=== PATIENT | male | born 1970 | race Caucasian/White ===

== ENCOUNTER 2017-07-16 16:50 | Emergency (ER) | payer OTHER ==
[2017-07-16 16:57] VITALS: BP 107/87; PULSE 92; RESP 20; TEMP 97.9; O2SAT 94
--- NOTE | 2017-07-16 17:09 | EDPHY ---
H & P Stated Complaint: st Time Seen by Provider: 07/16/17 17:08 HPI/ROS: HPI: This is a 47-year-old male who presents with Chief Complaint:throat pain Location: Throat Quality: Discomfort Duration: 2 days Signs and Symptoms: No fever, no chills, no neck stiffness, no headache, no difficulty swallowing, no swollen glands, no exudate Timing: Sudden Severity: Mild Context: Patient reports that he has had some throat discomfort for the last 2 days but denies fever, chills, neck stiffness, cough. Patient reports that he is eating and drinking well and without difficulty. Patient reports that the discomfort is negligible. He is to skin turned that he may have strep throat. Modifying Factors: He has taken no [id number] medication Comment: ROS: see HPI Constitutional: No fever, no chills, no weight loss Eyes: No blurred vision Respiratory: No shortness of breath, no cough Cardiovascular: No chest pain Gastrointestinal: No nausea, no vomiting, no diarrhea Genitourinary: No dysuria Extremities: No myalgias Neurologic: No weakness, no numbness Skin: No rashes Hematologic: No bruising, no bleeding MEDICAL/SURGICAL/SOCIAL HISTORY: Medical history: Generally healthy. Does not take any regular medications. Surgical history: Tonsillectomy Social history: Employed CONSTITUTIONAL: awake and alert, no obvious distress HEENT: Atraumatic and normocephalic, PERRL, EOMI. Tympanic membranes clear. Oropharynx clear, tonsils very small; uvula midline; minimal erythema in posterior pharynx; no exudate and moist pink mucosa. Airway patent. No lymphadenopathy. No meningismus. Cardiovascular: Normal S1/S2, regular rate, regular rhythm, without murmur rub or gallop. PULMONARY/CHEST: Symmetrical and nontender. Clear to auscultation bilaterally. Good air movement. No accessory muscle usage. ABDOMEN: Soft, nondistended, nontender, no rebound, no guarding, no peritoneal signs, no masses or organomegaly. No CVAT. EXTREMITIES: 2/2 pulses, strength 5/5, no deformities, no clubbing, no cyanosis or edema. NEUROLOGICAL: no focal neuro deficits. GCS 15. SKIN: Warm and dry, no erythema. no rash. Good capillary refill. Source: Patient Exam Limitations: No limitations - Personal History Current Tetanus/Diphtheria Vaccine: Unsure - Medical/Surgical History Hx Asthma: No Hx Chronic Respiratory Disease: No Hx Diabetes: No Hx Cardiac Disease: No Hx Renal Disease: No Hx Cirrhosis: No Hx Alcoholism: No Hx HIV/AIDS: No Hx Splenectomy or Spleen Trauma: No Other PMH: denies - Social History Smoking Status: Never smoked Constitutional: Initial Vital Signs Temperature (C) 36.6 C 07/16/17 16:53 Heart Rate 92 07/16/17 16:53 Respiratory Rate 20 07/16/17 16:53 Blood Pressure 107/87 H 07/16/17 16:53 O2 Sat (%) 94 07/16/17 16:53 O2 Delivery Mode Room Air Allergies/Adverse Reactions: No Known Allergies Allergy (Unverified 07/16/17 16:52) Home Medications: Medication Instructions Recorded Clozapine 07/16/17 Risperdal 07/16/17 Medical Decision Making ED Course/Re-evaluation: Given viscous lidocaine and rapid strep test ordered Patient is afebrile and no systemic signs No signs of tonsillar abscess/Claus's angina/airway compromise Strep negative. Advised supportive care Differential Diagnosis: Differential diagnosis includes but is not limited to strep pharyngitis, upper respiratory infection, viral syndrome. - Data Points Laboratory Results: 07/16/17 07/16/17 Unknown 17:09 Group A Strep Screen NEGATIVE (NEGATIVE) Group A Strep DNA Pending Departure - Departure Disposition: Home, Routine, Self-Care Clinical Impression: Pharyngitis Qualifiers: Pharyngitis/tonsillitis etiology: unspecified etiology Qualified Code(s): J02.9 - Acute pharyngitis, unspecified Condition: Good Instructions: Pharyngitis (ED) Additional Instructions: Take Tylenol or ibuprofen as needed for discomfort, fever. Perform salt water gargle several times per day as needed for throat discomfort. You may drink hot tea with honey to suture throat. Referrals: Philipp Jaffe MD [Primary Care Provider] - As per Instructions Maia Russell MD [Medical Doctor] - 5-7 days, if not improved
[2017-07-16] MEDS ORDERED: LIDOCAINE 2% VISCOUS 15 ML UDCUP PO ONE (17:22)
== END 2017-07-16 18:20 | disposition home or self-care (01) ==
DX: J02.9 Acute pharyngitis, unspecified (principal)